=== PATIENT | female | born 1990 | race Caucasian/White ===

== ENCOUNTER 2020-02-20 22:01 | Emergency (ER) | payer BC ==
[~2020-02-20] VITALS: Ht 167.6 cm; Wt 61.5 kg
[2020-02-20 22:04] VITALS: BP 142/64
--- NOTE | 2020-02-20 22:27 | NUR ---
THIS IS A 29 YO FEMALE COMING IN FOR LEFT EYE REDNESS/IRRITATION/BURNING X2-3 DAYS WELL DYSURIA X2 DAYS. PATIENT HAS BEEN TAKING OTC MEDICATION "AZO" FOR DYSURIA WITH NO RELIEF OF SX. HX FREQUENT UTI'S. UNKNOWN LMP DUE TO PATIENT HAVING IUD AND DOES NOT EXPERIENCE REGULAR MENSTRUAL CYCLE. VSS, NADN, CALL LIGHT IN REACH. UA COLLECTED AND SENT.
[2020-02-20] MEDS ORDERED: FLUORESCEIN OPHTHALMIC 1 MG STRIP EACHEYE ONE (22:30)
[2020-02-20] MEDS ORDERED: PROPARACAINE OPHTH 0.5%, 15ML EACHEYE ONE (22:30)
[2020-02-20 22:53] LABS: MICROSCOPIC INDICATED
[2020-02-20 23:19] LABS: HCG UR SG 1.019 (1.003-1.030)
[2020-02-21] MEDS ORDERED: ERYTHROMYCIN OPHTH 0.5%, 1GM LEFTEYE ONE
--- NOTE | 2020-02-21 00:20 | NUR ---
Erythromycin ointment applied to both eyes
--- NOTE | 2020-02-21 00:34 | NUR ---
Patient given discharge instructions and they have confirmed that they understand the instructions. Patient ambulatory with steady gait.
== END 2020-02-21 00:36 | disposition home or self-care (01) ==
LOC: ED 22:29
DX: R30.0 Dysuria (principal); B30.3 Acute epidemic hemorrhagic conjunctivitis (enteroviral); F17.290 Nicotine dependence, other tobacco product, uncomplicated
CPT/HCPCS: 81001; 81025; 87491; 87591; 99283; 99406